=== PATIENT | male | born 1965 | race Caucasian/White ===

== ENCOUNTER → 2019-08-16 08:48 | Outpatient (CLI) | payer OTHER, SELFPAY ==
[2019-08-16 09:21] LABS: Hematocrit 38.3 % (41-53); Hemoglobin 13.3 g/dL (13.5-17.5); Mean Corpuscular HGB Conc 34.8 % (30-36); Mean Corpuscular Hemoglobin 30.8 PG (26-34); Mean Corpuscular Volume 88.5 fL (80-100); Platelet Count 188 X10^3/uL (150-400); Red Blood Cell Count 4.33 X10^6/uL (4.5-5.9); Red Cell Distribution Width 13.6 % (11.6-14.8); White Blood Cell Count 5.8 X10^3/uL (4.5-11.0)
[2019-08-16 09:49] LABS: BUN Creatinine Ratio 13.3 (6-22); Blood Urea Nitrogen 12 mg/dL (9-20); Calcium 9.4 mg/dL (8.4-10.2); Carbon Dioxide 27 mmol/L (22-32); Chloride 107 mmol/L (98-107); Estimated Glomerular Filt Rate > 60.0 mL/min (>60); Glucose 129 mg/dL (70-100); HEMOLYSIS < 15 (0-50); Potassium 4.4 mmol/L (3.4-5.1); Sodium 141 mmol/L (137-145)
[2019-08-18 13:59] LABS: Lyme SCREEN w/ Reflex IgG IgM < 0.90 (< 0.90)
== END ==
PROVIDERS: PCP Student in an Organized Health Care Education/Training Program; Referring Provider Student in an Organized Health Care Education/Training Program; Visit Provider Student in an Organized Health Care Education/Training Program
DX: R21 Rash and other nonspecific skin eruption (principal); W57.XXXA Bitten or stung by nonvenomous insect and other nonvenomous arthropods, initial encounter; B35.1 Tinea unguium; Z79.899 Other long term (current) drug therapy; L03.90 Cellulitis, unspecified
CPT/HCPCS: 36415; 80048; 85027; 86618

== ENCOUNTER 2019-12-11 15:36 | Emergency (ER) | payer OTHER, SELFPAY ==
[2019-12-11 15:44] VITALS: BP 129/67; PULSE 77; RESP 18; TEMP 36.8; O2SAT 98; BMI 26.4
--- NOTE | 2019-12-11 16:31 | ED_ITS ---
HPI - Headache <Dimitris Maier DO - Last Filed: 12/12/19 07:05> General Chief Complaint: Headache Stated Complaint: migraine Time Seen by Provider: 12/11/19 16:16 Source: patient Mode of arrival: Ambulatory Limitations: no limitations History of Present Illness HPI Narrative: 54-year-old male with a history of migraines. Takes daily propanolol and also has sumatriptan at home states that last evening he had onset of 1 of his typical migraines. He states that if he normally catches it on time he would take the sumatriptan and his symptoms improved however last evening he felt that he let it go too long before taking this medication. He did take a dose last evening without any improvement. He took another dose earlier today without any improvement. He did not take his propanolol today. He does state that the headache is on the left side. It is sharp. It feels like 1 of his normal migraines. He states that it was a fairly sudden onset but this is how his migraines normally present. Does have photophobia. Denies any other neurologic symptoms. Related Data Home Medications Medication Instructions Recorded Confirmed tramadol 50 mg PO PRN PRN #180 06/25/17 08/16/19 Previous Rx's Medication Instructions Recorded cephalexin 500 mg capsule 500 mg PO Q12H #20 cap 08/14/19 propranolol 20 mg tablet 20 mg PO BID #180 tab 08/16/19 sumatriptan succinate 50 mg tablet 50 mg PO QDAYP #8 tab 08/16/19 Allergies Allergy/AdvReac Type Severity Reaction Status Date / Time metoclopramide [From Reglan] AdvReac Anxiety Verified 12/11/19 18:08 Review of Systems <DO Osorio Ballard Last Filed: 12/12/19 07:05> Constitutional Constitutional: Denies fever(s) and Reports headache(s) Eyes Comments: Photophobia ENT Ears, Nose, Mouth, and Throat: Denies abnormal hearing, Denies vertigo, Denies dizziness and Reports headache(s) Cardiovascular Cardiovascular: Denies chest pain and Denies dyspnea Respiratory Respiratory: Denies dyspnea Gastrointestinal Gastrointestinal: Denies abdominal pain Musculoskeletal Musculoskeletal: Denies tingling Integumentary/Breasts Skin/Breast: Denies rash Neurologic Neurologic: Denies abnormal hearing, Denies confusion, Denies vertigo, Denies dizziness, Reports headache(s) and Denies tingling Psychiatric Psychiatric: Denies confusion Hematologic/Lymphatic Hematologic/Lymphatic: Denies easy bleeding and Denies easy bruising Patient History <DO Osorio Ballard Last Filed: 12/12/19 07:05> Medical History Aortic regurgitation (Chronic) Migraines (Chronic) Surgical History History of lumbosacral spine surgery (Resolved) Social History Smoking Status: Never smoker alcohol intake: current substance use type: does not use Smoking Status: Never smoker alcohol intake frequency: 0-2 drinks per day Substance Use Type: does not use Exam <DO Osorio Ballard Last Filed: 12/12/19 07:05> Initial Vital Signs Initial Vital Signs: Vital Signs Temperature 98.2 F 12/11/19 15:44 Pulse Rate 77 12/11/19 15:44 Respiratory Rate 18 12/11/19 15:44 Blood Pressure 129/67 12/11/19 15:44 Pulse Oximetry 98 12/11/19 15:44 Const General: cooperative Limitations: mental status not altered HENMT Head: normal to inspection and normocephalic Resp Effort & Inspection: normal respiratory effort Cardio Rate: regular rate Skin Lesions: no lesions Rashes: no rashes Neuro General: patient alert, patient awake and patient oriented x3 Cognition: normal cognition Speech: speech normal Gait: normal gait Extrem General: normal to inspection Psych Appearance: grossly normal and well kempt <DO Osorio Flores Last Filed: 12/12/19 04:41> Initial Vital Signs Initial Vital Signs: Vital Signs Temperature 98.2 F 12/11/19 15:44 Pulse Rate 77 12/11/19 15:44 Respiratory Rate 18 12/11/19 15:44 Blood Pressure 129/67 12/11/19 15:44 Pulse Oximetry 98 12/11/19 15:44 Scores <DO Osorio Ballard Last Filed: 12/12/19 07:05> GCS Brenda coma scale eye opening: Spontaneous [place] coma scale verbal response: Orientated Brenda coma scale motor response: Obey commands [place] coma scale total score: 15 Course <DO Osorio Ballard Filed: 12/12/19 07:05> Orders Ordered: Discontinued Medications Acetaminophen (Tylenol) 975 mg PO NOW ONE Stop: 12/11/19 16:33 Last Admin: 12/11/19 17:01 Dose: 975 mg Documented by: TIFFANY Diphenhydramine HCl (Benadryl) 25 mg IV NOW ONE Stop: 12/11/19 16:33 Last Admin: 12/11/19 17:02 Dose: 25 mg Documented by: TIFFANY Diphenhydramine HCl (Benadryl) 12.5 mg IV NOW ONE Stop: 12/11/19 18:03 Last Admin: 12/11/19 18:14 Dose: 12.5 mg Documented by: TIFFANY Sodium Chloride (Normal Saline 0.9%) 1,000 mls @ 1,000 mls/hr IV BOLUS ONE Stop: 12/11/19 17:31 Last Infusion: 12/11/19 18:04 Dose: 0 mls/hr Documented by: Admin: 12/11/19 17:01 Dose: 1,000 mls/hr Documented by: TIFFANY Ketorolac Tromethamine (Toradol) 30 mg IV NOW ONE Stop: 12/11/19 16:33 Last Admin: 12/11/19 17:02 Dose: 30 mg Documented by: TIFFANY Metoclopramide HCl (Reglan) 10 mg IV NOW ONE Stop: 12/11/19 16:33 Last Admin: 12/11/19 17:02 Dose: 10 mg Documented by: TIFFANY Vital Signs Vital signs: Vital Signs - 8 hr 12/11/19 15:44 12/11/19 16:55 12/11/19 17:56 Temperature 98.2 F Pulse Rate 77 60 75 Respiratory Rate 18 16 17 Blood Pressure 129/67 Blood Pressure [Left Arm] 128/64 107/59 L Pulse Oximetry 98 100 100 <Mando Stewart DO - Last Filed: 12/12/19 04:41> Course Course Narrative: Received in signout from Dr. Maier. Very brief interaction with patient as he was near completely resolved when I checked on him and stating he is ready for discharge Orders Ordered: Discontinued Medications Acetaminophen (Tylenol) 975 mg PO NOW ONE Stop: 12/11/19 16:33 Last Admin: 12/11/19 17:01 Dose: 975 mg Documented by: TIFFANY Diphenhydramine HCl (Benadryl) 25 mg IV NOW ONE Stop: 12/11/19 16:33 Last Admin: 12/11/19 17:02 Dose: 25 mg Documented by: TIFFANY Diphenhydramine HCl (Benadryl) 12.5 mg IV NOW ONE Stop: 12/11/19 18:03 Last Admin: 12/11/19 18:14 Dose: 12.5 mg Documented by: TIFFANY Sodium Chloride (Normal Saline 0.9%) 1,000 mls @ 1,000 mls/hr IV BOLUS ONE Stop: 12/11/19 17:31 Last Infusion: 12/11/19 18:04 Dose: 0 mls/hr Documented by: Admin: 12/11/19 17:01 Dose: 1,000 mls/hr Documented by: TIFFANY Ketorolac Tromethamine (Toradol) 30 mg IV NOW ONE Stop: 12/11/19 16:33 Last Admin: 12/11/19 17:02 Dose: 30 mg Documented by: TIFFANY Metoclopramide HCl (Reglan) 10 mg IV NOW ONE Stop: 12/11/19 16:33 Last Admin: 12/11/19 17:02 Dose: 10 mg Documented by: TIFFANY Vital Signs Vital signs: Vital Signs - 8 hr 12/11/19 15:44 12/11/19 16:55 12/11/19 17:56 Temperature 98.2 F Pulse Rate 77 60 75 Respiratory Rate 18 16 17 Blood Pressure 129/67 Blood Pressure [Left Arm] 128/64 107/59 L Pulse Oximetry 98 100 100 MDM - Headache <Dimitris Maier, DO - Last Filed: 12/12/19 07:05> MDM Narrative Medical decision making narrative: Patient states that his presenting symptoms today are very similar to his prior headaches. He has been to the emergency department in the past needing IV medications to help with his symptoms. He was given Reglan and Benadryl and Toradol and Tylenol. Upon re-evaluation patient states that he was having some anxiety issues. I suspect this is related to the Reglan. He reports only minimal improvement of his headache after these medications. Will attempt some more Benadryl. If this does not work we will need to attempt other medications to try to control the symptoms. Care turned over to Dr. Stewart at change of shift follow-up. Discharge Plan Departure Patient Disposition: Home Clinical Impression: Migraine Qualifiers: Migraine type: unspecified Status migrainosus presence: without status migrainosus Intractability: not intractable Qualified Code(s): G43.909 - Migraine, unspecified, not intractable, without status migrainosus Discharge Date/Time: 12/11/19 19:25 Instructions: DI for Headache Activity Restrictions/Additional Instructions: *You have been diagnosed with [ migraine headache ] *What to do: *Take medications as directed *Follow up with your primary care provider in 2-3 days, call for an appointment. Let them know you were seen in the Emergency Department and that we ask that you be seen in follow up *Return to ER if you should have any new, worsening or concerning symptoms Prescriptions: No Action tramadol 50 MG tablet 50 mg PO PRN PRNQty: 180 RF: 0 cephalexin [Keflex] 500 mg capsule 500 mg PO Q12H Qty: 20 RF: 0 propranolol 20 mg tablet 20 mg PO BID Qty: 180 RF: 3 sumatriptan succinate [Imitrex] 50 mg tablet 50 mg PO QDAYP Qty: 8 RF: 5 Referrals: Terry Lim MD [Primary Care Provider] -
[2019-12-11 16:55] VITALS: BP 128/64; PULSE 60; RESP 16; O2SAT 100
[2019-12-11] MEDS: SODIUM CHLORIDE 0.9% 1,000 ML 1000 ML IV (17:01)
[2019-12-11] MEDS: ACETAMINOPHEN 325 MG TABLET 975 MG PO (17:01)
[2019-12-11] MEDS: KETOROLAC 60 MG/2 ML VIAL 30 MG IV (17:02)
[2019-12-11] MEDS: METOCLOPRAMIDE 10 MG/2 ML INJ IV (17:02)
[2019-12-11] MEDS: diphenhydrAMINE 50 MG/ML VIAL 25 MG IV (17:02)
[2019-12-11 17:56] VITALS: BP 107/59; PULSE 75; RESP 17; O2SAT 100
--- NOTE | 2019-12-11 18:06 | PC.NURSE ---
Patient reports feeling anxious after medication, it is assumed to be a reaction to the reglan. Dr. Maier aware and assessing patient.
[2019-12-11] MEDS: diphenhydrAMINE 50 MG/ML VIAL 12.5 MG IV (18:14)
[2019-12-11 19:15] VITALS: BP 100/56; PULSE 60; RESP 16; O2SAT 100
== END 2019-12-11 19:25 | disposition home or self-care (01) ==
PROVIDERS: Emergency Provider Emergency Medicine; PCP Student in an Organized Health Care Education/Training Program
DX: G43.909 Migraine, unspecified, not intractable, without status migrainosus (principal)
CPT/HCPCS: 96361; 96374; 96375; 96376; 99284; J1200; J1885; J2765

== ENCOUNTER → 2020-07-02 09:18 | Outpatient (CLI) | payer OTHER, SELFPAY ==
[2020-07-02 10:55] LABS: COVID19 -Nasal RAPID Negative (Negative)
== END ==
PROVIDERS: PCP Student in an Organized Health Care Education/Training Program; Visit Provider Surgery
DX: Z20.828 Contact with and (suspected) exposure to other viral communicable diseases (principal)
CPT/HCPCS: 87635; C9803

== ENCOUNTER 2020-07-03 11:30 | Day surgery (SDC) | payer OTHER, SELFPAY ==
[2020-07-02 12:07] VITALS: BMI 28.3
[2020-07-03] VITALS (7 sets, daily range): BP systolic 90–132; BP diastolic 55–85; PULSE 69–75; RESP 11–16; TEMP 36–36.2; O2SAT 97–100; BMI 28.3
[2020-07-03] MEDS: LACTATED RINGERS 1,000 ML 100 ML IV (12:10)
[2020-07-03] MEDS: CEFAZOLIN 2 GM/100 ML FROZ.PIGGY IV (13:15)
--- NOTE | 2020-07-03 13:21 | PM.PREOP ---
Pre-operative Note COVID-19 COVID-19 status: Negative Result date/Date tested (Pos, Neg/Pending): 07/02/20 Interval Note History & Physical reviewed/Exam performed by Physician: Yes Changes to H&P: No
--- NOTE | 2020-07-03 13:37 | SUR.OPER ---
Supine on padded OR bed, head on pillow, arms secured on padded arm boards at <90 degrees abduction, legs uncrossed, safety belt at thigh, tape over blanket over lower legs.
[2020-07-03] MEDS: BUPIVACAINE 0.25% W/ EPI (PF) 10 ML VIAL 30 ML INJ (13:40)
[2020-07-03] MEDS: BUPIVACAINE LIPOSOME 266 MG/20 ML VIAL INJ (13:58)
--- NOTE | 2020-07-03 14:22 | P.OP_ITS ---
Operative Date/Time/Diagnoses Date of procedure: 07/03/20 Time of procedure: 14:22 Pre-op diagnosis: Non reducible umbilical hernia Post-op diagnosis: other (Umbilical hernia with incarcerated fat) Procedure & Clinicians Procedure: Open primary repair of incarcerated umbilical hernia Same procedure as scheduled: Yes Indications: Non reducible umbilical hernia which is enlarging and causing pain. Surgeon: Anali Lorenzo Click Yes if Unassisted: Yes Anesthesia Type: General Operative Notes Findings: 1 cm umbilical defect with incarcerated fat in it Closure Type: primary Specimen(s): none sent Estimated Blood Loss (mL): 1 Procedure in detail: The patient was brought to the operating room, placed supine on the operating table, and sequential compression devices were placed on both legs and turned on. Appropriate perioperative antibiotics were given. General anesthesia was induced by the anesthesiologist and the patient was intubated with an LMA. The abdomen was then prepped and draped in sterile fashion, and a surgical time-out was conducted. At this point local anesthetic was injected using 0.25% Marcaine with epi, at the site of the planned incision. A 3cm transverse curvilinear incision was then made in the skin on the inferior border of the umbilicus. Dissection was then carried down through the dermis and subcutaneous tissue, until the hernia sac was encountered. I dissected circumferentially around the hernia sac, which was dissected off of the um bilical skin. The sac contained non-strangulated fat tissue. The incarcerated fat was too large to reduce through the defect, and was therefore divided at its neck and passed off of the field. The hernia defect was 1cm in diameter. The remaining hernia sac was reduced through the defect, and the defect was closed with 0 Ethibond figure of eight sutures. I then injected the fascia with 20mL of 0.25% Marcaine with epi, and 20mL of Exparel in small aliquots. I then covered the Ethibond sutures with subcutaneous fat bringing it together with 3-0 Vicryl suture, tacked down the umbilical skin with 3-0 Vicryl and closed the incision with subcuticular Monocryl 4-0. The skin edges were then sealed with Dermabond. This concluded the procedure. Once the glue was dry, two cotton balls were placed in the umbilicus and covered with a Tegaderm. The patient was awakened from anesthesia and extubated. He was transferred onto his hospital [facility]. The patient was then transferred to the postanesthesia care unit in stable condition. He tolerated the procedure well. Needle sponge and instrument counts were correct x2 at the end of the case. Complications: none Post-operative Condition: stable Disposition: PACU
== END 2020-07-03 14:57 | disposition home or self-care (01) ==
LOC: OR 11:30
PROVIDERS: PCP Student in an Organized Health Care Education/Training Program; Referring Provider Student in an Organized Health Care Education/Training Program; Visit Provider Surgery
PROC: (CPT 49587; principal; 2020-07-03 12:45)
DX: K42.0 Umbilical hernia with obstruction, without gangrene (principal)
CPT/HCPCS: 49587; 82962; C9290; J0690; J1100; J1885; J2250; J2405; J2704; J3010

== ENCOUNTER → 2020-08-05 15:44 | Outpatient (CLI) | payer OTHER, SELFPAY ==
[2020-08-05 16:28] LABS: Add Manual Diff / Slide Review NO; Basophils Absolute Auto 100 /uL (0-100); Basophils Percent Auto 1.5 % (0-2); Eosinophils Absolute Auto 100 /uL (0-450); Eosinophils Percent Auto 2.6 % (2-4); Lymphocytes Absolute Auto 1600 /uL (1100-4500); Lymphocytes Percent Auto 30.5 % (25-40); Mean Corpuscular HGB Conc 34.9 % (30-36); Mean Corpuscular Volume 88.7 fL (80-100); Monocytes Absolute Auto 500 /uL (0-900); Neutrophils Absolute Auto 3000 /uL (1500-7000); Neutrophils Percent Auto 56.4 % (50-75); Platelet Count 204 X10^3/uL (150-400); Red Blood Cell Count 4.51 X10^6/uL (4.5-5.9); Red Cell Distribution Width 13.1 % (11.6-14.8); White Blood Cell Count 5.4 X10^3/uL (4.5-11.0)
[2020-08-05 16:44] LABS: Alanine Aminotransferase 56 IU/L (<50); Albumin 4.6 g/dL (3.5-5.0); Albumin Globulin Ratio 1.8 (1.0-2.8); Alkaline Phosphatase 68 U/L (38-126); Aspartate Aminotransferase 39 IU/L (17-59); BUN Creatinine Ratio 15.7 (6-22); Blood Urea Nitrogen 17 mg/dL (9-20); Calcium 9.4 mg/dL (8.4-10.2); Carbon Dioxide 25 mmol/L (22-32); Chloride 104 mmol/L (98-107); Estimated Glomerular Filt Rate > 60.0 mL/min (>60); Globulin 2.6 g/dL (1.7-4.1); Glucose 103 mg/dL (70-100); HEMOLYSIS < 15 (0-50); Potassium 4.6 mmol/L (3.4-5.1); Sodium 137 mmol/L (137-145); Total Protein 7.2 g/dL (6.3-8.2)
[2020-08-05 21:36] LABS: Erythrocyte Sedimentation Rate 3 MM/HR (0-15)
== END ==
PROVIDERS: PCP Student in an Organized Health Care Education/Training Program; Referring Provider Registered Nurse; Visit Provider Registered Nurse
DX: R59.1 Generalized enlarged lymph nodes (principal)
CPT/HCPCS: 36415; 80053; 85025; 85651

== ENCOUNTER → 2022-02-11 17:06 | Outpatient (CLI) | payer OTHER, SELFPAY ==
[2022-02-11 18:12] LABS: BUN Creatinine Ratio 14.9 (6-22); Blood Urea Nitrogen 15 mg/dL (9-20); Calcium 9.4 mg/dL (8.4-10.2); Carbon Dioxide 29 mmol/L (22-32); Chloride 103 mmol/L (98-107); Cholesterol 209 mg/dL (140-199); Estimated Glomerular Filt Rate > 60 mL/min (>60); Glucose 106 mg/dL (70-100); HDL Cholesterol 43 mg/dL (40-60); HEMOLYSIS < 15 (0-50); LDL Cholesterol Calculated 115 mg/dL (<100); Potassium 4.4 mmol/L (3.4-5.1); Sodium 139 mmol/L (137-145); Triglycerides 256 mg/dL (35-150)
[2022-02-11 18:45] LABS: Prostate Specific Antigen Scrn 0.609 ng/mL (0.1-4.0)
== END ==
PROVIDERS: PCP Student in an Organized Health Care Education/Training Program; Referring Provider Student in an Organized Health Care Education/Training Program; Visit Provider Student in an Organized Health Care Education/Training Program
DX: Z79.899 Other long term (current) drug therapy (principal); Z13.220 Encounter for screening for lipoid disorders; Z12.5 Encounter for screening for malignant neoplasm of prostate
CPT/HCPCS: 36415; 80048; 80061; G0103

== ENCOUNTER → 2022-07-23 08:05 | Outpatient (CLI) | payer OTHER, SELFPAY ==
--- NOTE | 2022-07-23 08:06 | DI.RAD.S_ITS ---
PROCEDURE: XR LUMBAR SPINE 2-3V INDICATIONS: Back Pain TECHNIQUE: 3 views of the lumbar spine were acquired. COMPARISON: [facility], , L-SPINE 2-3 VIEWS, 05/07/2014, 13:35. FINDINGS: Bones: 5 [id number] vertebrae are present. There is 5 mm retrolisthesis of L3 on L4. Degenerative endplate changes, loss of disc height and bilateral facet arthrosis throughout lumbar spine is seen most notably at L3-4 and L4-5 levels. No vertebral body compression fractures. No suspicious bony lesions. Soft tissues: Overlying bowel gas pattern is normal. No suspicious soft tissue calcifications. IMPRESSION: Grade 1 retrolisthesis of L3 on L4. No acute compression fracture. Degenerative disc disease throughout lumbar spine as above. Dictated by: Jalil Rothman M.D. on 07/23/2022 at 9:28 Approved by: Jalil Rothman M.D. on 07/23/2022 at 9:31
== END ==
PROVIDERS: PCP Student in an Organized Health Care Education/Training Program; Referring Provider Internal Medicine; Visit Provider Internal Medicine
DX: M51.36 Other intervertebral disc degeneration, lumbar region (principal); M43.16 Spondylolisthesis, lumbar region; M47.816 Spondylosis without myelopathy or radiculopathy, lumbar region; M54.9 Dorsalgia, unspecified
CPT/HCPCS: 72100

== ENCOUNTER → 2023-07-22 09:59 | Outpatient (CLI) | payer OTHER, SELFPAY ==
[2023-07-22 10:18] LABS: Add Manual Diff / Slide Review NO; Basophils Absolute Auto 100 /uL (0-100); Basophils Percent Auto 1.4 % (0-2); Eosinophils Absolute Auto 0 /uL (0-450); Eosinophils Percent Auto 0.8 % (2-4); Hematocrit 41.7 % (41-53); Hemoglobin 14.6 g/dL (13.5-17.5); Lymphocytes Absolute Auto 1200 /uL (1100-4500); Mean Corpuscular HGB Conc 34.9 % (30-36); Mean Corpuscular Hemoglobin 31.1 PG (26-34); Mean Corpuscular Volume 89.2 fL (80-100); Monocytes Absolute Auto 300 /uL (0-900); Monocytes Percent Auto 5.5 % (3-14); Neutrophils Absolute Auto 3400 /uL (1500-7000); Neutrophils Percent Auto 68.3 % (50-75); Platelet Count 198 X10^3/uL (150-400); Red Blood Cell Count 4.68 X10^6/uL (4.5-5.9); Red Cell Distribution Width 13.7 % (11.6-14.8)
[2023-07-22 10:45] LABS: Alanine Aminotransferase 39 IU/L (<50); Albumin 4.7 g/dL (3.5-5.0); Albumin Globulin Ratio 1.9 (1.0-2.8); Alkaline Phosphatase 59 U/L (38-126); Aspartate Aminotransferase 31 IU/L (17-59); BUN Creatinine Ratio 13.9 (6-22); Bilirubin Total 1.7 mg/dL (0.2-1.3); Blood Urea Nitrogen 14 mg/dL (9-20); Calcium 9.9 mg/dL (8.4-10.2); Carbon Dioxide 24 mmol/L (22-32); Chloride 104 mmol/L (98-107); Cholesterol 201 mg/dL (140-199); Estimated Glomerular Filt Rate > 60 mL/min (>60); Globulin 2.5 g/dL (1.7-4.1); Glucose 122 mg/dL (70-100); HDL Cholesterol 38 mg/dL (40-60); HEMOLYSIS < 15 (0-50); LDL Cholesterol Calculated 135 mg/dL (<100); Potassium 4.2 mmol/L (3.4-5.1); Sodium 138 mmol/L (137-145); Total Protein 7.2 g/dL (6.3-8.2); Triglycerides 142 mg/dL (35-150)
[2023-07-22 11:36] LABS: Hemoglobin A1C% w Est Avg Glu 4.7 % (4.0-6.0)
[2023-07-22 16:52] LABS: Hep C Virus Ab w/Reflex Quant NEGATIVE s/c (NEGATIVE)
[2023-07-22 18:34] LABS: HIV 1 & 2 Ab/Ag 4th Gen Combo NEGATIVE (NEGATIVE)
== END ==
LOC: LAB 10:00
PROVIDERS: PCP Student in an Organized Health Care Education/Training Program; Referring Provider Family Medicine; Visit Provider Family Medicine
DX: Z13.9 Encounter for screening, unspecified (principal); Z11.59 Encounter for screening for other viral diseases; G43.909 Migraine, unspecified, not intractable, without status migrainosus; Z13.220 Encounter for screening for lipoid disorders; Z13.1 Encounter for screening for diabetes mellitus; Z11.4 Encounter for screening for human immunodeficiency virus [HIV]; E78.2 Mixed hyperlipidemia
CPT/HCPCS: 36415; 80053; 80061; 83036; 85025; 86803; 87389

== ENCOUNTER → 2024-02-16 08:50 | Outpatient (CLI) | payer OTHER, SELFPAY ==
--- NOTE | 2024-02-16 09:19 | DI.RAD.S_ITS ---
PROCEDURE: XR CHEST 2V INDICATIONS: Cough TECHNIQUE: 2 views of the chest were acquired. COMPARISON: None. FINDINGS: Surgical changes and devices: None. Lungs and pleura: Lungs are clear. No pleural effusions or pneumothorax. Mediastinum: Mediastinal contours are normal. Heart size is normal. Bones and chest wall: No suspicious bony abnormalities. Soft tissues appear unremarkable. IMPRESSION: No acute cardiopulmonary process. Dictated by: Raheem Pike M.D. on 02/16/2024 at 14:32 Approved by: Raheem Pike M.D. on 02/16/2024 at 14:34
[2024-02-16 09:55] LABS: COVID-19 CEPHEID 4-PLEX PCR Negative (Negative); Influenza A - CEPHEID Flu A NEGATIVE (NEGATIVE); Influenza B - CEPHEID Flu B NEGATIVE (NEGATIVE); Respiratory Syncytial Virus Negative (Negative)
== END ==
PROVIDERS: PCP Family Medicine; Referring Provider Nurse Practitioner Family; Visit Provider Nurse Practitioner Family
DX: R05.1 Acute cough (principal); R05.9 Cough, unspecified
CPT/HCPCS: 0241U; 71046

== ENCOUNTER 2024-06-10 13:43 | Emergency (ER) | payer OTHER, SELFPAY ==
[2024-06-10 13:51] VITALS: BP 150/80; PULSE 98; RESP 14; TEMP 36.2; O2SAT 98; BMI 27.1
--- NOTE | 2024-06-10 13:54 | DI.RAD.S_ITS ---
PROCEDURE: XR KNEE RT 3V INDICATIONS: fall TECHNIQUE: 3 views of the knee were acquired. COMPARISON: [facility], , KNEE 3V LEFT, 08/22/2015, 17:39. FINDINGS: Bones: No fractures or dislocations. No suspicious bony lesions. Soft tissues: No joint effusion. No suspicious soft tissue calcifications. IMPRESSION: No acute bony abnormality or significant effusion. Approved by: Harpreet Rodriguez M.D. on 06/10/2024 at 15:10
--- NOTE | 2024-06-10 13:54 | DI.RAD.S_ITS ---
PROCEDURE: XR HIP W PEL IF DONE LT 2V INDICATIONS: fall TECHNIQUE: 2 views of the hip were acquired. COMPARISON: None. FINDINGS: Bones: No fractures or dislocations. No suspicious bony lesions. The visualized pelvic ring appears intact. Soft tissues: No suspicious soft tissue calcifications or masses. IMPRESSION: No acute bony abnormality. Approved by: Harpreet Rodriguez M.D. on 06/10/2024 at 15:00
--- NOTE | 2024-06-10 14:16 | ED_ITS ---
HPI - Fall <Shanique Reynoso PA-C - Last Filed: 06/10/24 16:30> General Chief Complaint: Fall Stated Complaint: WIC; Fell from Bed, R Knee/L Hip Injuries Time Seen by Provider: 06/10/24 14:16 Mode of arrival: Wheelchair History of Present Illness HPI Narrative: Mr. Land is a pleasant 59-year-old male with a past medical history of migraines who presents to the emergency department for left hip pain and right knee pain after a fall that occurred this morning around 4:00 a.m. Patient reports that he got up early this morning to get a drink of water and when he came back to lay in bed his small dog was lying in his spot but he did not see it. As he started to lay in the bed and felt his dog he quickly twisted to the left which caused him to roll out of bed. Unfortunately his right foot was stuck in the middle bed frame as he rolled to the left. His right leg twisted causing right knee pain and he then landed on the left hip causing pain. Patient got himself up and has not taken any pain medication today but due to the persistent medial right knee pain and left hip pain he went to the walk-in clinic but was sent here to the ER for imaging. This time patient reports very localized pain on the inside of the right knee and the outside of the left hip. He denies hitting his head, loss of consciousness, visual disturbance, nausea or vomiting. Denies neck pain, back pain, chest pain, abdominal pain, upper extremity pain, left leg pain. Related Data Previous Rx's Medication Instructions Recorded propranolol 20 mg tablet 20 mg PO BID 90 days #180 tabs 07/20/23 sumatriptan succinate 50 mg tablet 50 mg PO Q2H PRN migraine headache 02/17/24 (Imitrex) #9 tabs acetaminophen 300 mg-codeine 30 mg 1 tab PO BID PRN pain #8 tabs 06/10/24 tablet Allergies Allergy/AdvReac Type Severity Reaction Status Date / Time No Known Drug Allergies Allergy Verified 06/10/24 13:51 Review of Systems <Shanique Reynoso PA-C - Last Filed: 06/10/24 16:30> Review of Systems ROS Unobtainable: All systems reviewed & are unremarkable except as noted in HPI and below Patient History <Shanique Reynoso PA-C - Last Filed: 06/10/24 16:30> Medical History Lumbar contusion Situational anxiety Arthropathy Rotator cuff tear Osteoarthritis Fibromyalgia Migraines Aortic regurgitation Surgical History S/P hernia repair H/O laminectomy History of lumbosacral spine surgery Family History Father Cancer Social History household members: spouse 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 Well-developed patient, in no acute distress. Sitting in wheelchair. HEAD: Atraumatic. Normocephalic. EYES: Extraocular motions intact. No scleral icterus. No injection or drainage. ENT: Nose without bleeding, purulent drainage. NECK: Trachea midline. Cervical ROM intact. CARDIOVASCULAR: Regular rate and rhythm. Strong DP and PT pulses bilaterally. RESPIRATORY: ?Nonlabored respirations. ?Speaking in clear, full sentences. ?Clear to auscultation. Breath sounds equal bilaterally. No wheezes, rales, or rhonchi. ? GASTROINTESTINAL: Abdomen soft, non-tender, nondistended. EXTREMITIES: Right knee: Tenderness to palpation of medial right knee with no deformity. Medial knee pain with valgus stress during Katie test. No reproducible laxity or pain on Zaira's test or posterior drawer test. No patellar tenderness or crepitus. Pain with flexion beyond 90?. No tenderness to palpation of remainder of appendicular skeleton. Nonfocal tenderness along lateral left hip. BACK: Nontender without deformity or crepitance. No flank tenderness. NEURO: AOx3. ?Clear speech. Stands and ambulates independently. SKIN: No rash or erythema of visible areas Initial Vital Signs Initial Vital Signs: Vital Signs Temperature 97.1 F L 06/10/24 13:51 Pulse Rate 98 H 06/10/24 13:51 Respiratory Rate 14 06/10/24 13:51 Blood Pressure 150/80 H 06/10/24 13:51 Pulse Oximetry 98 06/10/24 13:51 Oxygen Delivery Method Room Air 06/10/24 13:51 <Eva Jules MD - Last Filed: 06/10/24 16:56> Initial Vital Signs Initial Vital Signs: Vital Signs Temperature 97.1 F L 06/10/24 13:51 Pulse Rate 98 H 06/10/24 13:51 Respiratory Rate 14 06/10/24 13:51 Blood Pressure 150/80 H 06/10/24 13:51 Pulse Oximetry 98 06/10/24 13:51 Oxygen Delivery Method Room Air 06/10/24 13:51 Course <Shanique Reynoso PA-C - Last Filed: 06/10/24 16:30> Orders Ordered: ED Orders 06/10/24 13:54 XR hip w pel if done LT 2V Stat XR knee RT 3V Stat Discontinued Medications Acetaminophen (Acetaminophen 325 Mg Tablet) 650 mg PO NOW ONE Stop: 06/10/24 14:32 Last Admin: 06/10/24 14:46 Dose: 650 mg Documented By: ABRIL Ibuprofen (Ibuprofen 400 Mg Tablet) 400 mg PO NOW ONE Stop: 06/10/24 14:32 Last Admin: 06/10/24 14:46 Dose: 400 mg Documented By: ABRIL Vital Signs Vital signs: Vital Signs - 8 hr 06/10/24 13:51 Temperature 97.1 F L Pulse Rate 98 H Respiratory Rate 14 Blood Pressure 150/80 H Pulse Oximetry 98 Oxygen Delivery Method Room Air <Eva Jules MD - Last Filed: 06/10/24 16:56> Orders Ordered: ED Orders 06/10/24 13:54 XR hip w pel if done LT 2V Stat XR knee RT 3V Stat Discontinued Medications Acetaminophen (Acetaminophen 325 Mg Tablet) 650 mg PO NOW ONE Stop: 06/10/24 14:32 Last Admin: 06/10/24 14:46 Dose: 650 mg Documented By: ABRIL Ibuprofen (Ibuprofen 400 Mg Tablet) 400 mg PO NOW ONE Stop: 06/10/24 14:32 Last Admin: 06/10/24 14:46 Dose: 400 mg Documented By: ABRIL Vital Signs Vital signs: Vital Signs - 8 hr 06/10/24 13:51 Temperature 97.1 F L Pulse Rate 98 H Respiratory Rate 14 Blood Pressure 150/80 H Pulse Oximetry 98 Oxygen Delivery Method Room Air MDM - Fall <Shanique Blake RAJAN Reynoso - Last Filed: 06/10/24 16:30> [facility] Narrative Medical decision making narrative: 59-year-old male with a past medical history of migraines who presents to the emergency department for left hip pain and right knee pain after a fall that occurred this morning around 4:00 a.m. Differential diagnosis includes but is not limited to right knee fracture, right knee strain, right knee MCL injury, right knee meniscus injury, soft tissue injury, ligament injury, left hip fracture, left hip contusion, etc. On exam the patient is in no acute distress however he had does have discomfort with range of motion of the right knee. He has right medial knee tenderness and reproducible pain with valgus stress concerning for possible medial meniscus or ligament injury. He also has tenderness to palpation of the lateral left hip with no midline spinal tenderness or subjective pain. Bilateral lower extremities are neurovascularly intact. Patient drove himself to the ER. We will obtain imaging of the right knee and the left hip/pelvis. We will treat pain with ibuprofen and Tylenol at this time. Left hip and pelvis x-ray reveals no acute bony abnormality. Right knee x-ray reveals no acute bony abnormality or significant effusion. Results were printed and provided with the patient and we discussed findings. Patient still with significant right knee pain, offered dose of opiate pain medication in the ED however he wishes to drive himself home. Reports he does not tolerate hydrocodone and oxycodone but he does tolerate codeine. short course of acetaminophen/ codeine sent to the patient's pharmacy if needed for severe knee pain. Discussed narcotic risks with patient. He was placed in a right knee immobilizer for suspected soft tissue injury of the knee and recommended rice therapy. Patient verbalized understanding of all information and is ambulatory with the knee immobilizer. He is stable for discharge. Discharge Plan Departure Patient Disposition: Home Clinical Impression: Accidental fall from bed Qualifiers: Encounter type: initial encounter Qualified Code(s): W06.XXXA - Fall from bed, initial encounter Strain of right knee Qualifiers: Encounter type: initial encounter Qualified Code(s): S86.911A - Strain of unspecified muscle(s) and tendon(s) at lower leg level, right leg, initial encounter Contusion of hip, left Qualifiers: Encounter type: initial encounter Qualified Code(s): S70.02XA - Contusion of left hip, initial encounter Instructions: DI for Knee Pain Activity Restrictions/Additional Instructions: Please take Ibuprofen (Motrin/Advil) or Acetaminophen (Tylenol) for pain. These are available over the counter. You may take Ibuprofen 600 mg every 8 hours with food for pain. You may also take Acetaminophen 650 mg every 4-6 hours for pain. Do not exceed 3000 mg of Tylenol a day as this can cause liver damage. Do not drink alcohol with either of these medications. Please use RICE therapy for your pain in addition to ibuprofen/acetaminophen. Rest the painful area. Ice the area of pain/swelling for at least 15 minutes, 4x a day. Compress the area of swelling using a brace, wrap, or splint if applied. Elevate the painful or swollen extremity by supporting it above the level of the heart with pillows when sitting or laying. For further evaluation of possible right knee soft tissue injury, you may follow up with [facility] here in [facility] at . You have been prescribed a short course of narcotic medications. These are potentially dangerous and addictive medications that should be used carefully. While on these medications you cannot drive or operate heavy machinery. Additionally, you cannot sign legal documents or perform any duties such as this. Many people get constipated on narcotic medications so it would be advisable to discuss stool softeners with the pharmacist when you filler picker your prescription. Please understand that we cannot provide further refills of narcotics or controlled substances through the ED and your pain management will need to be through your Primary Care Provider Please follow up with your primary care doctor within the next 2-3 days for ER follow-up. (If you do not have a PCP you can call [phone]. ?to schedule an appointment with an [facility] Primary Care Provider) IF YOU DEVELOP ANY NEW OR WORSENING SYMPTOMS, RETURN TO THE ER! Please read the attached instructions, they highlight more specific treatments and interventions for you at home. Thank you for letting me participate in your care, Shanique Reynoso PA-C Prescriptions: New acetaminophen-codeine 300-30 mg tablet 1 tab PO BID PRN (Reason: pain) Qty: 8 0RF No Action propranolol 20 mg tablet 20 mg PO BID 90 Days Qty: 180 3RF Hold Instructions: Trial of cessation sumatriptan succinate [Imitrex] 50 mg tablet 50 mg PO Q2H MDD 200mg PRN (Reason: migraine headache) Qty: 9 5RF Referrals: Pk Estrada MD [Primary Care Provider] - Stand Alone Forms: Patient Portal/API/Survey ED Sign-out <Eva Jules MD - Last Filed: 06/10/24 16:56> Cosign ED Attending Cosyenniature Attestation: I was immediately available in the department for consultation throughout this patient's visit. Eva Jules MD
[2024-06-10] MEDS: IBUPROFEN 400 MG TABLET PO (14:46)
[2024-06-10] MEDS: ACETAMINOPHEN 325 MG TABLET 650 MG PO (14:46)
== END 2024-06-10 16:33 | disposition home or self-care (01) ==
PROVIDERS: Emergency Provider Physician Assistant; PCP Family Medicine
DX: S86.911A Strain of unspecified muscle(s) and tendon(s) at lower leg level, right leg, initial encounter (principal); S70.02XA Contusion of left hip, initial encounter; M25.561 Pain in right knee; W06.XXXA Fall from bed, initial encounter; X50.1XXA Overexertion from prolonged static or awkward postures, initial encounter
CPT/HCPCS: 73502; 73562; 99283; 99284

== ENCOUNTER → 2024-06-16 07:45 | Outpatient (CLI) | payer OTHER, SELFPAY ==
--- NOTE | 2024-06-16 | DI.MRI.S_ITS ---
PROCEDURE: MR KNEE RT WO CON INDICATIONS: Other tear of medial meniscus, current injury, right knee, i TECHNIQUE: Noncontrast sagittal PD fast spin echo and T2 fast spin echo with fat saturation, sagittal 3-D FLASH with fat saturation; coronal T1 spin echo and PD fast spin echo with fat saturation, and axial PD fast spin echo with fat saturation through the knee. COMPARISON: [facility], CR, XR KNEE RT 3V, 06/10/2024, 14:17. FINDINGS: Image quality: Excellent. Menisci: The medial and lateral menisci demonstrate normal morphology and internal signal. The meniscal root ligaments appear intact. Cruciate ligaments: The anterior and posterior cruciate ligaments appear intact. Medial structures: There is full-thickness tear of the medial patella retinaculum, about the femoral insertion. There is focal full-thickness tear of the most anterior aspect of the mid MCL (05:19). Lateral structures: The lateral collateral ligament, long and short heads of the biceps femoris tendon appear intact. The popliteus tendon appears normal; the popliteofibular ligament appears intact. The posterosuperior and anteroinferior popliteomeniscal fascicles appear intact. The arcuate and fabellofibular ligaments appear intact, on either side of the lateral inferior geniculate artery. Iliotibial band appears normal. Anterior structures: The quadriceps tendon is unremarkable. Mild tendinosis of the proximal patellar tendon. No Hoffa's fat pad edema. Mild suprapatellar fat pad edema. Alignment of the patellofemoral compartment is anatomic. The medial and lateral patellofemoral ligaments are intact. Bones and cartilage: Multi focal full-thickness chondral fissuring in the medial and lateral patellar facet, with mild subchondral marrow edema. Cartilage of the trochlea is unremarkable. The cartilage of the medial and lateral compartments are grossly well maintained. Small bone island is seen in the medial femoral condyle. No acute fracture. Joint space: Small knee effusion. No popliteal cyst. Popliteal vasculature is unremarkable. No intra-articular body. IMPRESSION: 1. Full-thickness tear of the medial patellar retinaculum, about the femoral insertion. Additional focal full-thickness tear of the most anterior aspect of the mid MCL. 2. Mild chondrosis of the patellofemoral compartment. Dictated by: Sondra Adhikari M.D. on 06/16/2024 at 12:27 Approved by: Sondra Adhikari M.D. on 06/16/2024 at 12:44
== END ==
PROVIDERS: PCP Family Medicine; Referring Provider Physician Assistant Surgical; Visit Provider Physician Assistant Surgical
DX: S76.111A Strain of right quadriceps muscle, fascia and tendon, initial encounter (principal); S83.411A Sprain of medial collateral ligament of right knee, initial encounter; S83.241A Other tear of medial meniscus, current injury, right knee, initial encounter; M94.261 Chondromalacia, right knee; X58.XXXA Exposure to other specified factors, initial encounter
CPT/HCPCS: 73721